=== PATIENT | female | born 1980 | race Caucasian/White ===

== ENCOUNTER → 2016-10-21 | Outpatient (CLI) | payer MEDICAID ==
--- NOTE | 2016-10-21 11:52 | US ---
Ultrasound Thyroid History: Z00.00, Z01.419, E03.9, E04.1, thyroid nodule, hypothyroidism. Technique: Longitudinal and transverse ultrasound imaging of the thyroid gland. Findings: Right lobe of the thyroid measures 5.7 x 1.7 x 1.5 cm. Left lobe of the thyroid measures 5. 2 x 1.7 x 1.5 cm. Isthmus thickness is 0.3 cm. In the right lobe of the thyroid lower pole there is a heterogenous solid 2.8 x 2.5 x 1.8 cm nodule. A few normal bilateral anterior neck lymph nodes up to 1 cm. Impression: 1. Right lobe lower pole complex solid 2.8 x 2.5 x 1.8 cm thyroid nodule. 2. Recommend ultrasound-guided FNA biopsy of the right lobe thyroid nodule.
== END ==
LOC: CIMAGING 09:23
PROVIDERS: ATTEND Family Medicine
DX: E04.1 Nontoxic single thyroid nodule (principal)
CPT/HCPCS: 76536-PO

== ENCOUNTER → 2019-03-09 | Outpatient (CLI) | payer MEDICAID | LOC: EMCIMAGING 12:46 ==